=== PATIENT | female | born 1960 | race Caucasian/White ===

== ENCOUNTER 2019-02-11 06:06 | Day surgery (SDC) | payer MEDICARE, MEDICAID ==
[~2019-02-11] VITALS: Ht 162.6 cm; Wt 82.1 kg
[~2019-02-11 06:06] MED LIST: ASPIRIN325 MG PO; BETAMETHASONE D15 GM TOP; BUSPIRONE HCL10 MG PO; CLEOCIN HCL150 MG PO; DIAZEPAM5 MG PO; DOTTI1 EACH TD; ESTRADIOL2 MG PO; FLUTICASONE PRO16 GM; LIPITOR20 MG PO; LORATADINE10 MG PO; MAGNESIUM CHLOR64 MG; MELOXICAM15 MG PO; METFORMIN HCL500 MG PO; METHOCARBAMOL750 MG PO; MULTI VITAMIN1 EACH PO; NIACIN500 M1 PO; OXYCODONE HCL5 MG PO; POTASSIUM CHLO20 ME1 PO; ROPINIROLE HCL1 MG PO; SERTRALINE HCL100 MG PO; STOOL SOFTENER100 M1 PO; VITAMIN B-6100 MG PO; VITAMIN C500 M4 PO; VITAMIN E100 UNI3 PO
[2019-02-11] MEDS ORDERED: ASPIRIN325 MG PO (06:27)
--- NOTE | 2019-02-11 08:21 | NUR ---
02/11/19 0821 Nasreen Dash 0812 PT ARRIVED WITH PT OWN CPAP IN PLACE WITH 4L O2, PT DROWSY AND ROLLS TO PRONE. PT DENIES PAIN AND NAUSEA. CPAP REMOVED BY PT. RESP EVEN AND UNLABORED. NO CBG PER SENIOR PORTFOLIO ANALYST. 0815 PT RESTING AND PLAN OF CARE DISCUSSED.
--- NOTE | 2019-02-11 15:03 | NUR ---
PT RETURNED FOR ADDITIONAL SCOPE. PT ADMITTED SHE IS SOMEWHAT ANXIOUS-WORRIED ABOUT WHAT DR MAY FIND. I ENCOURAGED HER TO WAIT FOR RESULTS TO KNOW EXACTLY WHAT SHE IS FACING. SHE THANKED ME AND REQUESTED PRAYER. WILL FOLLOW NEEDED
--- NOTE | 2019-02-15 08:04 | OR ---
[facility] [address] [place], [place] [address] Signed DATE OF OPERATION: 02/11/2019 SURGEON: Naz Leo MD PREOPERATIVE DIAGNOSES: 1. Personal history of colonic polyps. 2. Mother and brother with a history of colonic polyps. POSTOPERATIVE DIAGNOSES: 1. 5 mm polyps in proximal right colon, 55 cm, 32 cm and 6 cm. 2. Mild clifford-diverticulosis. 3. Mild to moderate internal hemorrhoids. PROCEDURE PERFORMED: Colonoscopy with hot biopsy. ESTIMATED BLOOD LOSS: None. INDICATIONS: Tara is a 58-year-old female, asked to see me for a colonoscopy. She had a colonoscopy in 2011 as well as 2018. She states they were never able to complete the colonoscopy because she could not tolerate the pain and was far too awake with Versed and fentanyl. She does require oxycodone on a daily basis because of various orthopedic issues and surgeries. We know she had an adenomatous polyp removed around 50 cm in September of this year. To her knowledge, she has never had a barium enema. She told me that her mother and brother both had colonic polyps removed. In the office, I gave her a pamphlet on colonoscopy. We looked at that together along with the risks including, but not limited to gas bloating, crampy abdominal pain, bleeding, perforation, requiring surgery, and missed diagnosis. Also because of her inability to be adequately sedated with Versed and fentanyl we asked that an anesthesia provider help us with increased monitoring sedation with propofol. She had expressed understanding and wished to proceed. DESCRIPTION OF PROCEDURE: Tara was taken into our endoscopy suite and placed in the left lateral decubitus position. She was maintained on IV sedation with propofol per our nurse field radio operator. Even then she metabolized the propofol quickly and woke up several times and had to have additional boluses of propofol given during the procedure. Other than that, the scope did advance fairly readily. On digital rectal exam, no obvious concerns. The adult colonoscope had been inserted and passed all the way up into the cecum. We used extra Electronically Signed By: NAZ LEO MD 02/15/19 0804 PATIENT NAME: TARA LUNDBERG OPERATIVE REPORT DATE OF : 62 REPORT #: [id number] PHYSICIAN: NAZ LEO MD PCP: TOVA CANELA MD REPORT IS CONFIDENTIAL AND NOT TO BE RELEASED WITHOUT AUTHORIZATION [facility] [address] [place], [place] [address] Signed propofol and some abdominal compression in order to advance the scope. Her prep was good was good. The scope was slowly withdrawn. We could easily see the appendiceal orifice and the ileocecal valve. We had taken multiple pictures for photodocumentation. The above-mentioned polyps were easily removed with the help of a hot biopsy forceps. We did look around 50 to 55 cm very closely and we did not visualize a previous polypectomy scar. However, we found just a tiny polyp in the area that we removed. She does have a few diverticula in the right colon and left and sigmoid colon. They were small in size, few in number, and scattered about. Upon retroflexion of the scope, she does have minimal to moderate internal hemorrhoids. After this, the gas was suctioned out. The colonoscope removed. Tara had tolerated the procedure quite well. RECOMMENDATIONS: I will see Tara back in my office in 7 to 14 days to review her results. She can resume her aspirin in 1 week. She will stay on the 5-year rotation given her personal and family history of colonic polyps. Naz Leo MD ALB/MODL /[id number] cc: MD Naz Naidu MD Copies: TOVA CANELA MD, ANDREW L MD ~ Electronically Signed By: NAZ LEO MD 02/15/19 0804 PATIENT NAME: TARA LUNDBERG OPERATIVE REPORT DATE OF : 62 REPORT #: [id number] PHYSICIAN: NAZ LEO MD PCP: TOVA CANELA MD REPORT IS CONFIDENTIAL AND NOT TO BE RELEASED WITHOUT AUTHORIZATION
== END 2019-02-11 08:48 | disposition home or self-care (01) ==
LOC: DS 06:06 → OPS 06:06 → DS 06:45 → OPS 06:45
PROVIDERS: Colon & Rectal Surgery
PROC: 0DBE8ZZ Excision of Large Intestine, Via Natural or Artificial Opening Endoscopic (ICD-10-PCS; 2019-02-11)
PROC: 0DBK8ZZ Excision of Ascending Colon, Via Natural or Artificial Opening Endoscopic (ICD-10-PCS; principal; 2019-02-11 06:45)
DX: Z12.11 Encounter for screening for malignant neoplasm of colon (principal); D12.2 Benign neoplasm of ascending colon; K63.5 Polyp of colon; K57.30 Diverticulosis of large intestine without perforation or abscess without bleeding; K64.8 Other hemorrhoids; I10 Essential (primary) hypertension; E78.5 Hyperlipidemia, unspecified; E11.9 Type 2 diabetes mellitus without complications; E66.9 Obesity, unspecified; Z98.890 Other specified postprocedural states; Z86.010 Personal history of colon polyps; Z83.71 Family history of colonic polyps; Z88.2 Allergy status to sulfonamides; Z88.6 Allergy status to analgesic agent; Z68.32 Body mass index [BMI] 32.0-32.9, adult
CPT/HCPCS: J2704; J7120

== ENCOUNTER 2024-09-19 05:30 | Day surgery (SDC) | payer MEDICARE, MEDICAID ==
[2024-09-06 11:36] VITALS: BP 135/80
[~2024-09-19] VITALS: Ht 162.6 cm; Wt 97.3 kg
[~2024-09-19 05:30] MED LIST changes: +ASPIR-LOW81 MG PO; +LACTATED RINGER'S 1,000 ML IV SCH; +SLOW-MAG71.5 MG PO; +SYSTANE COMPLET10 ML; +VITAMIN D-32000 UNIT PO; +ZYRTEC10 MG PO
[2024-09-19] MEDS ORDERED: SODIUM CHLORIDE 0.9% 500 ML IV ONE (05:55)
[2024-09-19 06:01] VITALS: BP 152/77
[2024-09-19] MEDS ORDERED: Ropivacaine HCl 20 MG/10 ML AMP ONE (06:02)
[2024-09-19] MEDS ORDERED: ARIPIPRAZOLE5 MG PO (06:15)
[2024-09-19] MEDS ORDERED: PRAMIPEXOLE0.375 MG PO (06:16)
[2024-09-19] MEDS ORDERED: HYDROCHLOROTHIA25 MG PO (06:16)
[2024-09-19] MEDS ORDERED: MIDAZOLAM HCL 2 MG/2 ML VIAL ONE (06:32)
[2024-09-19] MEDS ORDERED: Ropivacaine HCl 0.5% 30 ML VIAL ONE (06:32)
[2024-09-19] MEDS ORDERED: fentaNYL citrate 100 MCG/2 ML VIAL ONE (06:32)
[2024-09-19] MEDS ORDERED: SODIUM CHLORIDE 0.9% 40 ML IV ONE (06:32)
[2024-09-19] MEDS ORDERED: dexmedeTOMIDine HCl 200 MCG/2 ML VIAL ONE (06:38)
[2024-09-19] MEDS ORDERED: DEXAMETHASONE SOD PHOS 4 MG/ML VIAL ONE (06:38)
[2024-09-19] MEDS ORDERED: LIDOCAINE HCL 2% 5 ML SDV ONE (06:38)
[2024-09-19] MEDS ORDERED: PANTOPRAZOLE SODIUM 40 MG TABEC PO SCH (07:00)
[2024-09-19] MEDS ORDERED: OXYCODONE HCL 5 MG TAB PO SCH (07:00)
[2024-09-19] MEDS ORDERED: TRANEXAMIC ACID IN NACL,ISO-OS 1,000 MG/100 ML PIGGYBACK IV SCH ×2 (07:00→10:02)
[2024-09-19] MEDS ORDERED: ROPIVACAINE IN 0.9% SOD CHL/PF 545 ML ELS.PMP.HR IRRIGATION SCH (07:00)
[2024-09-19] MEDS ORDERED: CEFAZOLIN SODIUM 2 GM/20 ML SYR IV SCH ×2 (07:00→12:32)
[2024-09-19] MEDS ORDERED: IBLOOD GLUCOSE TEST STRIP 1 EA TEST VI PRN ×2 (07:00→08:15)
[2024-09-19] MEDS ORDERED: LIDOCAINE HCL 1% 5 ML SDV INJ ONE (07:00)
[2024-09-19] MEDS ORDERED: ondansetron HCL 4 MG TAB PO SCH (07:00)
[2024-09-19] MEDS ORDERED: GABAPENTIN 600 MG TAB PO SCH (07:00)
[2024-09-19] MEDS ORDERED: INTRA-ARTICULAR ANALGESIC INJECTION XX SCH (07:00)
[2024-09-19] MEDS ORDERED: propofoL 200 MG/20 ML VIAL ONE (07:03)
[2024-09-19] MEDS ORDERED: CLINDAMYCIN PHOSPHATE/D5W 900 MG/50 ML PIGGYBACK IV ONE (07:15)
[2024-09-19] MEDS ORDERED: OXYCODONE HCL 5 MG TAB PO PRN (07:15)
--- NOTE | 2024-09-19 07:39 | NUR ---
PT NOT AVAILABLE FOR VISIT. PROVIDED PRAYER.
[2024-09-19] MEDS ORDERED: ondansetron HCL 4 MG/2 ML VIAL IV PRN (08:15)
[2024-09-19] MEDS ORDERED: fentaNYL citrate 50 MCG/ML SDV IV PRN (08:15)
[2024-09-19] MEDS ORDERED: NALOXONE HCL 0.4 MG SYR IV PRN (08:15)
[2024-09-19] MEDS ORDERED: ASPIRIN325 MG PO (08:33)
--- NOTE | 2024-09-19 08:56 | NUR ---
09/19/24 0856 Kimi Gardner 0839-PT ARRIVES TO PACU, VIA STRETCHER, RESTING SEMI FOWLERS, PT A+O X4, DENIES PAIN OR NAUSEA, VSS ON 6L VIA MASK. IMAGING CALLED FOR POST OP X-RAY. 0845-PT TITRATED TO RA, VS REMAIN STABLE.
[2024-09-19] MEDS ORDERED: ASPIRIN 325 MG TAB PO SCH (09:00)
--- NOTE | 2024-09-19 09:20 | NUR ---
PT ARRIVES TO DS FROM PACU VIA STRETCHER. PT REPORTS PAIN IS 4/10 AT THIS TIME W/MINOR NUMBNESS IN BLE. PT ABLE TO WIGGLES TOES AND SPINAL IS RESOLVED. PT ON RA W/O2 >90% AT THIS TIME, RESPIRATIONS EVEN AND UNLABORED, NO SIGNS OF DISTRESS. PT TOLERATING SIPS OF ICE WATER WITHOUT DIFFICULTY SWALLOWING. CRACKERS AND PUDDING PROVIDED, PT STATES NO FURTHER NEEDS OR QUESTIONS AT THIS TIME. PARTNER IN ROOM. REPORT RECEIVED FROM BULMARO DELANEY. CALL LIGHT WITHIN REACH, PT REPORTS NO FURTHER NEEDS OR QUESTIONS AT THIS TIME.
[2024-09-19 09:21] VITALS: BP 131/86
--- NOTE | 2024-09-19 10:22 | NUR ---
EBONIE W/PHYSICAL THERAPY IN TO SEE PT AT THIS TIME. PT REQUESTS PRN OXY GIVEN BEFORE PHYSICAL THERAPY, GIVEN (SEE EMAR). PT OFF OF UNIT W/EBONIE. PT PARTNER ACCOMPANYING.
--- NOTE | 2024-09-19 10:31 | OR ---
[facility] [address] [place] [place] [place] [address] Signed DATE OF OPERATION: 09/19/2024 SURGEON: Sara Kay MD PREOPERATIVE DIAGNOSIS: Severe degenerative joint disease, left knee. POSTOPERATIVE DIAGNOSIS: Severe degenerative joint disease, left knee. PROCEDURE PERFORMED: Left total knee arthroplasty with Nicho. ROOF BOLTER: Senia Jeronimo PA-C. Senia was present and critical for all portions of procedure. ANESTHESIA: Spinal. BLOOD LOSS: 200 mL. TOURNIQUET TIME: Zero. IMPLANTS: [place] Triathlon size 3, 10 mm polyethylene, 32 mm patella. BRIEF HISTORY: Tara is a 63-year-old female with progressive worsening of osteoarthritis in both knees, left worse than the right. Risks and benefits of operative treatment were discussed with her and she elected to proceed. DESCRIPTION OF PROCEDURE: Once consent was obtained she was taken to the operating room. After adequate anesthesia she was placed on the operating room table. Left hip bump was placed. The leg was then prepped and draped in a standard sterile fashion. Standard anterior midline incision was made through the skin and subcutaneous tissue. Skin flaps were developed medially and laterally. A low mid vastus arthrotomy was performed. The Electronically Signed By: SARA KAY MD 09/19/24 1031 PATIENT NAME: TARA LUNDBERG OPERATIVE REPORT DATE OF : 62 REPORT #: [id number] PHYSICIAN: SARA KAY MD PCP: ADELFO QUIJANO PA-C REPORT IS CONFIDENTIAL AND NOT TO BE RELEASED WITHOUT AUTHORIZATION [facility] [address] [place], [place] [address] Signed infrapatellar fat pad was excised. The MCL was elevated as a sleeve around the posteromedial corner. The anterior horns of the menisci were transected. The ACL was transected. PCL was found to be intact. The navigation computer arrays were placed in the distal femur and proximal tibia. Leg was registered with the computer followed by the fine anatomic points of the knee. The ligamentous testing was undertaken and slight adjustments were made to the femoral component. It was moved approximately 0.5 mm. The robot was then brought in, four straight cuts and two angle cuts were made with care taken to protect the MCL and patellar tendon. The bony pieces were removed as were any remaining osteophytes. Posterior osteophytes removed off the femur and the trials were implanted. Knee was taken from 0 to 130 degrees with excellent stability, good tracking of the patella. The patella was then cut, sized and drilled for a 32 mm patella. The distal femoral drill holes were completed. The proximal tibia was completed using the keel punch followed by the four drill holes. The prosthesis was obtained. The tibia was impacted into position first followed by the polyethylene. The femur was then impacted until seated flush. The knee was extended and loaded. The patella was clamped into position until seated flush. Again, patellar tracking was checked and found to be excellent. The knee was then copiously irrigated with Surgiphor followed by normal saline. The On-Q pain pump was percutaneously placed into the adductor canal from the suprapatellar pouch. The periarticular soft tissue was injected with 100 mL ropivacaine Toradol mixture. The arthrotomy was then closed using a combination of #2 Stratafix and #2 FiberWire. The subcutaneous tissue with 0 Stratafix and skin with 3-0. Wound was sealed with LiquiBand and Steri-Strips and dressed with an Acticoat-7 dressing, ABD, and Melvin wrap. She tolerated the procedure well. All sponge, needle, and instrument counts were correct. Sara Kay MD BA/MODL /[id number] Copies: ~ Electronically Signed By: SARA KAY MD 09/19/24 1031 PATIENT NAME: TARA LUNDBERG OPERATIVE REPORT DATE OF : 62 REPORT #: [id number] PHYSICIAN: SARA KAY MD PCP: ADELFO QUIJANO PA-C REPORT IS CONFIDENTIAL AND NOT TO BE RELEASED WITHOUT AUTHORIZATION
--- NOTE | 2024-09-19 10:35 | NUR ---
PT BACK FROM PHYSICAL THERAPY. PER EBONIE, PT PASSED. PT BAG IN BED W/CRYO CUFF, VIDHI HOSE, HEEL PROTECTORS, FOOT PUMPS, AND ONQ PUMP @[address]. PT STATES PAIN IS AT 5/10 AND ICE PACK MOVED TO POSTERIOR ASPECT. CALL LIGHT WITHIN REACH. PT REPORTS NO FURTHER NEEDS OR QUESTIONS AT THIS TIME. LUNCH ORDER PLACED. NO ACUTE CHANGES FROM PREVIOUS SURGICAL SITE ASSESSMENT.
[2024-09-19 10:39] VITALS: BP 134/60
--- NOTE | 2024-09-19 11:20 | NUR ---
IN PT ROOM FOR PAIN ASSESSMENT. PT STATES PAIN HAS REDUCED TO 2/10 AND IS TOLERABLE AT THIS TIME. PT STATES SHE IS COMFORTABLE, NO FURTHER NEEDS OR QUESTIONS.
--- NOTE | 2024-09-19 11:35 | NUR ---
PT LUNCH ARRIVES. PT HAS DENTURES AT BEDSIDE, THIS RN RETRIEVES TEETH GLUE FROM MS FLOOR. CALL LIGHT WITHIN REACH, PT STATES NO FURTHER NEEDS OR QUESTIONS AT THIS TIME.
--- NOTE | 2024-09-19 12:00 | NUR ---
IN PT ROOM D/T PT REPORT OF NEED TO URINE VOID. D/T PT PASSING PHYSICAL THERAPY, PT TO RESTROOM FOR URINE VOID OF 200 ML CLEAR/YELLOW URINE. PT AMBULATION/GAIT IS STEADY AND USES WALKER APPROPRIATELY. PT GETTING DRESSED AT THIS TIME W/PARTNER IN ROOM TO ASSIST, CALL LIGHT WITHIN REACH.
[2024-09-19 12:29] VITALS: BP 140/60
--- NOTE | 2024-09-19 12:40 | NUR ---
IN PT ROOM FOR ADMIN OF IV ANCEF (SEE EMAR). DC EDUCATION PROVIDED TO PT AND PT PARTNER AT THIS TIME. PT AND PARTNER STATE VERBAL UNDERSTANDING AND NO FURTHER QUESTIONS OR NEEDS AT THIS TIME. PT OFF OF UNIT VIA WC TO BACKSEAT OF PARTNER'S VEHICLE. ALL BELONGINGS IN PT POSSESSION AT THIS TIME, ICE PACK AND IS PROVIDED TO PT AT THIS TIME. PT AND PT PARTNER STATE NO FURTHER NEEDS OR QUESTIONS AT THIS TIME.
[2024-09-19] MEDS ORDERED: CEFAZOLIN SODIUM 2 GM/20 ML SYR IV ONE (12:45)
[2024-09-19] MEDS ORDERED: GABAPENTIN 300 MG CAP PO SCH (15:00)
[2024-09-19] MEDS ORDERED: SENNOSIDES 1 TAB PO SCH (21:00)
== END 2024-09-19 12:50 | disposition home or self-care (01) ==
LOC: DS 05:30
PROVIDERS: ATTEND Specialist
PROC: 0SRD0JZ Replacement of Left Knee Joint with Synthetic Substitute, Open Approach (ICD-10-PCS; principal; 2024-09-19 07:00)
DX: M17.0 Bilateral primary osteoarthritis of knee (principal); E11.9 Type 2 diabetes mellitus without complications; Z88.2 Allergy status to sulfonamides; Z79.899 Other long term (current) drug therapy
CPT/HCPCS: 01400; 64447; 64450; 64454; 73560; 76942; 97161; A9270; C1713; C1776; J0690; J1100; J2003; J2250; J2704; J2795; J3010; J7040; J7121; J7999

== ENCOUNTER 2025-02-13 05:35 | Day surgery (SDC) | payer MEDICARE ==
[~2025-02-13] VITALS: Ht 162.6 cm; Wt 95.0 kg
[~2025-02-13 05:35] MED LIST changes: +ARIPIPRAZOLE5 MG PO; +HYDROCHLOROTHIA25 MG PO; +PRAMIPEXOLE0.375 MG PO; +VAZALORE81 MG PO; +VITAMIN E100 UNI2 PO; -VITAMIN E100 UNI3 PO
[2025-02-13 06:07] VITALS: BP 147/79
[2025-02-13] MEDS ORDERED: MIDAZOLAM HCL 2 MG/2 ML VIAL ONE (06:19)
[2025-02-13] MEDS ORDERED: fentaNYL citrate 100 MCG/2 ML VIAL ONE (06:19)
[2025-02-13] MEDS ORDERED: SODIUM CHLORIDE 0.9% 500 ML IV ONE (06:20)
[2025-02-13] MEDS ORDERED: Ropivacaine HCl 20 MG/10 ML AMP ONE (06:20)
[2025-02-13] MEDS ORDERED: OXYCODONE HCL 5 MG TAB PO SCH (07:00)
[2025-02-13] MEDS ORDERED: ROPIVACAINE IN 0.9% SOD CHL/PF 545 ML ELS.PMP.HR IRRIGATION SCH (07:00)
[2025-02-13] MEDS ORDERED: PANTOPRAZOLE SODIUM 40 MG TABEC PO SCH (07:00)
[2025-02-13] MEDS ORDERED: IBLOOD GLUCOSE TEST STRIP 1 EA TEST VI PRN (07:00)
[2025-02-13] MEDS ORDERED: GABAPENTIN 600 MG TAB PO SCH ×2 (07:00→15:00)
[2025-02-13] MEDS ORDERED: LIDOCAINE HCL 1% 5 ML SDV INJ ONE (07:00)
[2025-02-13] MEDS ORDERED: CEFAZOLIN SODIUM 2 GM/20 ML SYR IV SCH (07:00)
[2025-02-13] MEDS ORDERED: INTRA-ARTICULAR ANALGESIC INJECTION XX SCH (07:00)
[2025-02-13] MEDS ORDERED: TRANEXAMIC ACID IN NACL,ISO-OS 1,000 MG/100 ML PIGGYBACK IV SCH ×2 (07:00→10:00)
[2025-02-13] MEDS ORDERED: Ropivacaine HCl 0.5% 30 ML VIAL ONE (07:27)
[2025-02-13] MEDS ORDERED: LIDOCAINE HCL 2% 5 ML SDV ONE (07:28)
--- NOTE | 2025-02-13 07:37 | NUR ---
PT NOT AVAILABLE FOR VISIT. PROVIDED PRAYER.
[2025-02-13] MEDS ORDERED: DICLOFENAC SODI75 MG PO (08:11)
[2025-02-13] MEDS ORDERED: CLINDAMYCIN HC300 MG PO (08:11)
[2025-02-13] MEDS ORDERED: GABAPENTIN300 MG PO (08:12)
[2025-02-13] MEDS ORDERED: OXYCODONE HCL5 M1 PO (08:12)
[2025-02-13] MEDS ORDERED: OXYCODONE HCL 5 MG TAB PO PRN (08:15)
--- NOTE | 2025-02-13 08:24 | NUR ---
02/13/25 0824 Philly Franco PATIENT'S OXYGEN SATURATION 100% ON 6L VIA MASK. PATIENT FOLLOWS INSTRUCTIONS TO LIFT HEAD OFF PILLOW. SURGICAL BONNET AND OXYGEN MASK ARE REMOVED.
[2025-02-13] MEDS ORDERED: fentaNYL citrate 50 MCG/ML SDV IV PRN (09:00)
[2025-02-13] MEDS ORDERED: NALOXONE HCL 0.4 MG SYR IV PRN (09:00)
[2025-02-13] MEDS ORDERED: KETOROLAC TROMETHAMINE 30 MG/ML VIAL IV ONE (09:00)
[2025-02-13] MEDS ORDERED: ACETAMINOPHEN 1,000 MG/100 ML VIAL IV PRN (09:00)
[2025-02-13] MEDS ORDERED: MEPERIDINE HCL 25 MG/1 ML VIAL IV PRN (09:00)
[2025-02-13] MEDS ORDERED: HYDROmorphone HCL 1 MG/ML SYR IV PRN (09:00)
[2025-02-13] MEDS ORDERED: ASPIRIN 325 MG TAB PO SCH (09:00)
[2025-02-13 09:14] VITALS: BP 153/80
--- NOTE | 2025-02-13 10:20 | OR ---
[facility] [address] [place], [place] [address] Signed DATE OF OPERATION: 02/13/2025 SURGEON: Sara Kay MD PREOPERATIVE DIAGNOSIS: Severe degenerative joint disease, right knee POSTOPERATIVE DIAGNOSIS: Severe degenerative joint disease, right knee PROCEDURE PERFORMED: Right total knee arthroplasty with Nicho. CLOSET ORGANIZER: Senia Jeronimo PA-C. Senia was present and critical for all portions of procedure. ANESTHESIA: Spinal. BLOOD LOSS: 150 mL. TOURNIQUET TIME: Zero. IMPLANTS: [place] Triathlon size 3 10 mm polyethylene and a 32 patella. BRIEF HISTORY: Tara is a 64-year-old female with progressive worsening of arthritis in her right knee. She had undergone prior left total knee with good results, wished to proceed with the right. Risks, benefits, and alternatives of surgery were discussed with her and she elected to proceed. DESCRIPTION OF PROCEDURE: Once consent was obtained, she was taken to the operating room. After adequate anesthesia, she was placed on the operating room table. All downside pressure points were well padded. A hip bump was placed. The leg was prepped and draped in a standard sterile fashion. The knee was approached through standard anterior midline incision, Electronically Signed By: SARA KAY MD 02/13/25 1020 PATIENT NAME: TARA LUNDBERG OPERATIVE REPORT DATE OF : 62 REPORT #: [id number] PHYSICIAN: SARA KAY MD PCP: ORLY ELENA REPORT IS CONFIDENTIAL AND NOT TO BE RELEASED WITHOUT AUTHORIZATION [facility] [address] [place], [place] [address] Signed carried through skin and subcutaneous tissue. Skin flaps were developed medially and laterally. A low mid vastus arthrotomy was performed and the infrapatellar fat pad was excised. The MCL was elevated as a sleeve subperiosteally around to the level of the posteromedial corner. Anterior horns of the menisci were transected as was the ACL. PCL was found to be intact. The navigation computer arrays were then placed in the distal femur and proximal tibia. The leg was then registered with the computer followed by the fine anatomic points of the knee. Varus valgus ligamentous testing resulted in a little bit of laxity medially and the prosthesis position was changed on the computer. The robot was then brought in. The four straight cuts and two angle cuts were made with care taken to protect the patellar tendon and MCL. The bony remnants were removed as were any remaining osteophytes. The posterior osteophytes removed off the femur. No release was performed. The trials were then positioned. Knee was taken from 0-140 degrees with good stability throughout. The patella tracked well. The patella was cut sized and drilled for a 32 mm patella. The distal femoral drill holes were completed and the proximal tibia was completed using the keel punch followed by the four drill holes. The prosthesis was obtained. The tibia was impacted in position until it was seated flush. The polyethylene was snapped in position and the femur was impacted until again it was seated fully. The knee was then extended and loaded. The patella was clamped into position and tracking was checked and found to be good. The knee was copiously irrigated with one bottle of Surgiphor followed by normal saline. The periarticular soft tissues were injected with 100 mL ropivacaine Toradol mixture. The On-Q pain pump was percutaneously placed into the adductor canal from the suprapatellar pouch. The arthrotomy was then closed using #2 FiberWire. The subcutaneous tissue with 0 Stratafix and the skin with 3-0 Stratafix. The wound was sealed with LiquiBand and Steri-Strips and dressed with an Acticoat-7 dressing, ABDs, and Melvin wrap. She tolerated the procedure well. All sponge, needle, and instrument counts were correct. Sara Kay MD BA/MODL /[id number] Electronically Signed By: SARA KAY MD 02/13/25 1020 PATIENT NAME: TARA LUNDBERG OPERATIVE REPORT DATE OF : 62 REPORT #: [id number] PHYSICIAN: SARA KAY MD PCP: ORLY ELENA REPORT IS CONFIDENTIAL AND NOT TO BE RELEASED WITHOUT AUTHORIZATION [address] [place] [address] Signed Copies: ~ Electronically Signed By: SARA KAY MD 02/13/25 1020 PATIENT NAME: LUNDBERGTARA OPERATIVE REPORT DATE OF : 62 REPORT #: [id number] PHYSICIAN: SARA KAY MD PCP: ORLY ELENA REPORT IS CONFIDENTIAL AND NOT TO BE RELEASED WITHOUT AUTHORIZATION
[2025-02-13 10:24] VITALS: BP 135/67
--- NOTE | 2025-02-13 10:34 | NUR ---
LE 0911-PT BACK TO ROOM FROM PACU ON RA. RECEIVED REPORT FROM ROSALINA DELANEY. PT IS AWAKE. RESP EVEN AND UNLABORED. STATES KNEE IS ACHY. CRYO CUFF IN PLACE AND RUNNING. ON-Q PUMP SET AT 4. PT DRINKING WATER AND EATING PUDDING. PARTNER IN ROOM. NO OTHER NEEDS AT THIS TIME. CALL LIGHT WITHIN REACH. LE 0925-PT STATES PAIN IS NOW A 4/10. PAIN MEDICATION GIVEN PER EAMR.
--- NOTE | 2025-02-13 10:40 | NUR ---
LE 1024-PT IS LAYING IN BED WITH EYES CLOSED. PT AWAKES WITH VERBAL STIMULI. RESP EVEN AND UNLABORED. RATES PAIN A 3/10 AND THIS IS TOLERABLE. CRYO CUFF IN PLACE AND RUNNING. ON-Q PUMP SET AT 4. PARTNER IN ROOM WITH PT. NO OTHER NEEDS AT THIS TIME. CALL LIGHT WITHIN REACH.
[2025-02-13 11:43] VITALS: BP 144/81
--- NOTE | 2025-02-13 11:54 | NUR ---
LE 1115-PT UP TO RESTROOM WITH PHYSICAL THERAPY. PT ABLE TO VOID 600ML OF YELLOW URINE. LE 1120-PT LEAVES DAY SURGERY WITH PHYSICAL THERAPY. LE 1135-PT BACK TO ROOM FROM PHYSICAL THERAPY.
--- NOTE | 2025-02-13 11:57 | NUR ---
LE 1138-LUNCH ORDERED.
--- NOTE | 2025-02-13 11:58 | NUR ---
LE 1145-PT LAYING IN BED. RESP EVEN AND UNLABORED. PAIN IS TOLERABLE AT THIS TIME. CRYO CUFF IN PLACE AND RUNNING. ON-Q PUMP AT 4. PARTNER IN ROOM. NO OTHER NEEDS AT THIS TIME. CALL LIGHT WITHIN REACH.
--- NOTE | 2025-02-13 12:56 | NUR ---
GEOFFREY 1243-WENT OVER DISCHARGE INSTURCTIONS WITH PT AND HER PARTNER. WENT OVER POSTOP MEDICATIONS. PT WILL TAKE ASA 325MG BID FOR [address] MENDEZ. ALL QUESTIONS ANSWERED. GEOFFREY 1245-PT AMBULATES WITH WALKER TO WHEELCHAIR. RIDE PROVIDED TO [facility] WHERE RIDE WAS WAITING WITH THE CAR.
[2025-02-13] MEDS ORDERED: CLINDAMYCIN PHOSPHATE/D5W 900 MG/50 ML PIGGYBACK IV ONE (13:00)
[2025-02-13] MEDS ORDERED: ACETAMINOPHEN 500 MG TAB PO SCH (15:00)
[2025-02-13] MEDS ORDERED: SENNOSIDES 1 TAB PO SCH (21:00)
[2025-02-14] MEDS ORDERED: DICLOFENAC SOD 75 MG TABEC PO SCH (08:00)
== END 2025-02-13 12:37 | disposition home or self-care (01) ==
LOC: DS 05:35
PROVIDERS: ATTEND Specialist
PROC: 0SRC0JZ Replacement of Right Knee Joint with Synthetic Substitute, Open Approach (ICD-10-PCS; principal; 2025-02-13 07:00)
DX: M17.11 Unilateral primary osteoarthritis, right knee (principal); E11.9 Type 2 diabetes mellitus without complications; E78.00 Pure hypercholesterolemia, unspecified; I10 Essential (primary) hypertension; G47.30 Sleep apnea, unspecified; Z88.1 Allergy status to other antibiotic agents; Z88.2 Allergy status to sulfonamides; Z88.8 Allergy status to other drugs, medicaments and biological substances; Z79.82 Long term (current) use of aspirin; Z79.84 Long term (current) use of oral hypoglycemic drugs; Z79.899 Other long term (current) drug therapy; Z87.891 Personal history of nicotine dependence
CPT/HCPCS: 0055T; 27447; 01402; 64447; 73560; 76942; 97161; A9270; C1776; J0690; J2003; J2250; J2704; J2795; J3010; J3490; J7040; J7121